=== PATIENT | female | born 1965 | race Caucasian/White ===

== ENCOUNTER → 2016-06-17 | Outpatient (CLI) | payer BC ==
[~2016-06-17] MED LIST: ALL60 PO; SERT25TA PO; SIMV5TAB2 PO
--- NOTE | 2016-06-17 15:55 | MAMMOGRAPHY REPORT ---
BILATERAL DIGITAL SCREENING MAMMOGRAM TOMOSYNTHESIS WITH CAD: 06/17/2016 CLINICAL HISTORY: Routine screening. Patient has no complaints. TECHNIQUE: Breast tomosynthesis in addition to standard 2D mammography was performed. Current study was also evaluated with a Computer Aided Detection (CAD) system. COMPARISON: Comparison is made to exams dated: 06/14/2015 mammogram, 06/09/2013 mammogram, 06/12/2014 mammogram, 06/08/2012 mammogram, 06/05/2011 mammogram, and 06/03/2010 mammogram - [facility]. BREAST COMPOSITION: There are scattered areas of fibroglandular density in both breasts. FINDINGS: The parenchymal pattern is unchanged. No developing mass, architectural distortion or clu ster of suspicious microcalcifications is seen in either breast. IMPRESSION: ACR BI-RADS CATEGORY 2: BENIGN There is no mammographic evidence of malignancy. A 1 year screening mammogram is recommended. The p atient will receive written notification of the results. Approximately 10% of breast cancers are not detected with mammography. A negative mammographic repor t should not delay biopsy if a clinically suggestive mass is present. Charisse Barreto M.D. ay/:06/17/2016 13:49:38 Supervisor Finishing Room: Mark ARZATE(Harrison)(M), [facility] letter sent: Normal 1/2 BI-RADS Code: ACR BI-RADS Category 2: Benign
== END | disposition home or self-care (01) ==
LOC: C.MAMM 09:41
PROVIDERS: ATTEND Internal Medicine
DX: Z12.31 Encounter for screening mammogram for malignant neoplasm of breast (principal)

== ENCOUNTER → 2016-11-19 | Outpatient (CLI) | payer BC ==
--- NOTE | 2016-11-19 10:16 | DIAGNOSTIC IMAGING REPORT ---
RIGHT SHOULDER MIN 2 VIEWS CLINICAL HISTORY: Right shoulder pain. No recent trauma. COMPARISON: None FINDINGS: Alignment of the right shoulder is anatomic. There is no fracture or suspicious osseous lesion. There is moderate osteoarthritis of the right acromioclavicular joint. IMPRESSION: Moderate osteoarthritis of the right acromioclavicular joint. Electronically signed by: Soren Yi M.D. 11/19/2016 10:14 AM Dictated Date/Time: 11/19/2016 10:14 AM
== END | disposition home or self-care (01) ==
LOC: C.RDSM 11:45
PROVIDERS: ATTEND Family Medicine
DX: M19.011 Primary osteoarthritis, right shoulder (principal)

== ENCOUNTER → 2017-01-13 | Outpatient (CLI) | payer BC ==
[~2017-01-13] MED LIST changes: +FEXO5TAB2 PO; +GADAVIST IV PRN; +LEVO75TA5 PO; +SERT-234 PO; +SIMV20TA2 PO
--- NOTE | 2017-01-13 10:47 | DIAGNOSTIC IMAGING REPORT ---
FLUOROSCOPIC GUIDED RIGHT SHOULDER ARTHROGRAM PRE-MRI CLINICAL HISTORY: RIGHT SHOULDER PAIN COMPARISON STUDY: 11/19/2016 FINDINGS: A timeout was performed. The risks of the procedure were explained to the patient and informed consent was obtained. The patient was prepped and draped in sterile fashion. The skin was anesthetized with 1% lidocaine. Under fluoroscopic guidance, a 20-gauge spinal needle was introduced into the joint capsule. A mixture of Optiray 300, sodium chloride, Gadavist were instilled into the joint. A single fluoroscopic spot image was obtained to document intra-articular location of the contrast. 10 seconds of fluoroscopic time was utilized. The patient was sent to the MRI suite for further evaluation IMPRESSION: Successful fluoroscopically guided right shoulder gadolinium arthrogram pre-MRI. Electronically signed by: Navneet Paige M.D. 01/13/2017 10:45 AM Dictated Date/Time: 01/13/2017 10:42 AM
--- NOTE | 2017-01-13 11:30 | DIAGNOSTIC IMAGING REPORT ---
POST ARTHROGRAM MRI THE RIGHT SHOULDER CLINICAL HISTORY: RIGHT SHOULDER PAIN COMPARISON STUDY: Conventional radiographic study dated 11/19/2016 FINDINGS: Following a gadolinium arthrogram, imaging was performed the sagittal, coronal, and axial planes. There is a full-thickness tear of the supraspinatus with 9 mm of maximal tendon retraction. There are no areas of marrow replacement or edema to indicate occult fracture or neoplasm. The bicipital tendon appears intact. There is no dislocation. There is minor degenerative irregularity of the glenoid labrum. No discrete labral tears are visualized. IMPRESSION: Full-thickness rotator cuff tear with 9 mm of maximal tendon retraction Electronically signed by: Navneet Paige M.D. 01/13/2017 11:29 AM Dictated Date/Time: 01/13/2017 11:24 AM
== END | disposition home or self-care (01) ==
LOC: C.MRIBC 09:36
PROVIDERS: ATTEND Family Medicine
DX: M75.101 Unspecified rotator cuff tear or rupture of right shoulder, not specified as traumatic (principal)

== ENCOUNTER → 2017-03-09 | Outpatient (CLI) | payer BC ==
[~2017-03-09] MED LIST changes: -ALL60 PO; -GADAVIST IV PRN; -SERT25TA PO; -SIMV5TAB2 PO
== END | disposition home or self-care (01) ==
LOC: C.RDSM 11:32
PROVIDERS: ATTEND Orthopaedic Surgery
DX: Z98.890 Other specified postprocedural states (principal)

== ENCOUNTER → 2017-05-21 | Outpatient (CLI) | payer BC ==
[2017-05-21 12:19] LABS: BASO % 0.5 %; BASO ABS # 0.03 K/uL (0-0.2); EOS % 1.9 %; EOS ABS # 0.12 K/uL (0-0.5); HEMATOCRIT 44.5 % (37-47); HEMOGLOBIN 15.6 g/dL (12.0-16.0); IG# 0.02 K/uL (0.00-0.02); LYMPH % 25.3 %; LYMPH ABS # 1.57 K/uL (1.2-3.4); MEAN CELL VOLUME 89.5 fL (80-100); MEAN CORPUSCULAR HEMOGLOBIN 31.4 pg (25-34); MEAN CORPUSCULAR HGB CONC 35.1 g/dl (32-36); MEAN PLATELET VOLUME 10.1 fL (7.4-10.4); MONO % 9.4 %; MONO ABS # 0.58 K/uL (0.11-0.59); NEUT % 62.6 %; NEUT ABS # 3.88 K/uL (1.4-6.5); PLATELET COUNT 261 K/uL (130-400); RED CELL DISTRIBUTION WIDTH CV 12.3 % (11.5-14.5); RED CELL DISTRIBUTION WIDTH SD 39.6 fL (36.4-46.3)
[2017-05-21 12:21] LABS: HEMOGLOBIN A1C 5.5 % (4.5-5.6)
[2017-05-21 12:51] LABS: ALBUMIN 3.7 gm/dl (3.4-5.0); ALKALINE PHOSPHATASE 93 U/L (45-117); ALT/SGPT 32 U/L (12-78); AST/SGOT 17 U/L (15-37); BLOOD UREA NITROGEN 17 mg/dl (7-18); CALCIUM 8.8 mg/dl (8.5-10.1); CARBON DIOXIDE 24 mmol/L (21-32); CREATININE 0.73 mg/dl (0.60-1.20); GLUCOSE 99 mg/dl (70-99); SODIUM 138 mmol/L (136-145); TOTAL PROTEIN 7.4 gm/dl (6.4-8.2)
[2017-05-21 13:02] LABS: CHOLESTEROL 165 mg/dl (0-200); LDL CHOLESTEROL CALCULATED 93 mg/dl
== END | disposition home or self-care (01) ==
LOC: C.LABBFT 08:47
PROVIDERS: ATTEND Internal Medicine
DX: E78.00 Pure hypercholesterolemia, unspecified (principal); E03.9 Hypothyroidism, unspecified; R73.01 Impaired fasting glucose

== ENCOUNTER → 2017-06-21 | Outpatient (CLI) | payer BC ==
--- NOTE | 2017-06-22 07:47 | MAMMOGRAPHY REPORT ---
BILATERAL DIGITAL SCREENING MAMMOGRAM TOMOSYNTHESIS WITH CAD: 06/21/2017 CLINICAL HISTORY: Routine screening. Patient has no complaints. TECHNIQUE: Breast tomosynthesis in addition to standard 2D mammography was performed. Current study was also evaluated with a Computer Aided Detection (CAD) system. COMPARISON: Comparison is made to exams dated: 06/17/2016 mammogram, 06/14/2015 mammogram, 06/12/2014 m ammogram, 06/09/2013 mammogram, 06/08/2012 mammogram, and 06/05/2011 mammogram - [facility]. BREAST COMPOSITION: There are scattered areas of fibroglandular density in both breasts. FINDINGS: The parenchymal pattern is unchanged. No developing mass, architectural distortion or clus ter of suspicious microcalcifications is seen in either breast. IMPRESSION: ACR BI-RADS CATEGORY 2: BENIGN There is no mammographic evidence of malignancy. A 1 year screening mammogram is recommended. The pa tient will receive written notification of the results. Approximately 10% of breast cancers are not detected with mammography. A negative mammographic report should not delay biopsy if a clinically suggestive mass is present. Charisse Barreto M.D. ay/:06/21/2017 12:21:42 Wool Cleaner: Breanne Phoenix, [facility] letter sent: Normal 1/2 BI-RADS Code: ACR BI-RADS Category 2: Benign
== END | disposition home or self-care (01) ==
LOC: C.MAMM 08:38
PROVIDERS: ATTEND Internal Medicine
DX: Z12.31 Encounter for screening mammogram for malignant neoplasm of breast (principal)